=== PATIENT | male | born 1970 | race Two or more races ===

== ENCOUNTER 2024-12-18 17:08 | Inpatient (IN) | payer OTHER ==
[~2024-12-18] VITALS: Ht 172.7 cm; Wt 108.8 kg
--- NOTE | 2024-12-18 19:05 | ED.PDOC ---
History of Present Illness HPI Comments Mr. Lyles is a 54 year old male with PMHX of hypertension and hyperlipidemia, who presents with chief complaint of difficulty urinating. The patient states that for last 3 days he has had decrease in his urinary flow associated with strong smelling urine, dysuria, dribbling, and bloating sensation. Reports that in the last 24 hours developed chills and subjective fevers. He denies hematuria, pyuria, nausea, vomiting, pelvic pain, flank pain, suprapubic pain, palpitations, or previous issues with his prostate. Due to persistence of symptoms he presents today to the emergency department for further evaluation. He states he was able to urinate to give a sample. Chief Complaint: Urinary Time Seen by MD: 18:30 Allergies: Coded Allergies: NO KNOWN ALLERGIES (Unverified , 12/18/24) Information Source: Patient Mode of Arrival: Ambulatory Severity: None Timing: Days Duration: Since onset Past Medical History PAST MEDICAL HISTORY: High Lipids, HTN Surgical History: Cholecystectomy Family History Family History: Family hx of DM, Family hx of heart karley, Family hx of HTN Social History Smoker: Non-Smoker Alcohol: Denies ETOH Use Drugs: Denies Drug Use Lives In: Home Constitutional: reports: chills, diaphoresis, others (Febrile sensation) EENTM: denies: blurred vision, double vision, ear bleeding, ear discharge, ear drainage, ear pain, ear ringing, eye pain, eye redness, hearing loss, mouth pain, mouth swelling, nasal discharge, nose bleeding, nose congestion, nose pain, photophobia, tearing, throat pain, throat swelling, voice changes, others Respiratory: denies: cough, hemoptysis, orthopnea, SOB at rest, shortness of breath, SOB with excertion, stridor, wheezing, others Cardiovascular: denies: chest pain, dizzy spells, diaphoresis, Dyspnea on exertion, edema, irregular heart beat, left arm pain, lightheadedness, palpitations, PND, syncope, others Gastrointestinal: denies: abdomen distended, abdominal pain, blood streaked bowels, constipated, diarrhea, dysphagia, difficulty swallowing, hematemesis, melena, nausea, poor appetite, poor fluid intake, rectal bleeding, rectal pain, vomiting, others Genitourinary: reports: dysuria, urgency, others (urinary retention) Neurological: denies: dizziness, fainting, headache, left sided numbness, left sided weakness, numbness, paresthesia, pre-existing deficit, right sided numbness, right sided weakness, seizure, speech problems, tingling, tremors, weakness, others Musculoskeletal: denies: back pain, gout, joint pain, joint swelling, muscle pain, muscle stiffness, neck pain, others Integumetry: denies: bruises, change in color, change in hair/nails, dryness, laceration, lesions, lumps, rash, wounds, others Hematologic/Lymphatic: denies: anemia, blood clots, easy bleeding, easy bruising, swollen glands, others Physical Exam General Appearance: Normal, Obese HEENT: Normal ENT Inspection, PERRL/EOMI, Pharynx Normal Neck: Full Range of Motion, Non-Tender, Normal Inspection Respiratory: Lungs Clear, No Accessory Muscle Use, No Respiratory Distress, Normal Breath Sounds Cardiovascular: No Edema, No JVD, No Murmur, No Gallop, Normal Peripheral Pulses, Regular Rate/Rhythm Breast Exam: Deferred Gastrointestinal: No Organomegaly, Non Tender (No suprapubic tenderness present, no CVA tenderness), No Pulsatile Mass, Normal Bowel Sounds, Other (No bladder globe present) Genitalia: Deferred Pelvic: Deferred Rectal: Deferred Extremities: No calf tenderness, Normal capillary refill, Normal inspection, Normal range of motion, Non-tender, No pedal edema Neurologic: No Motor Deficits, Normal Affect, Normal Mood, No Sensory Deficits Cerebellar Function: Normal Reflexes: Normal Skin: Normal Color Lymphatic: No Adenopathy Was a procedure done? Was a procedure done?: No Differential Dx Considerations may include: UTI, BPH, prostatitis, acute urinary retention X-Ray, Labs, Meds, VS Vital Signs Date Time Temp Pulse Resp B/P (MAP) Pulse Ox O2 Delivery O2 Flow Rate FiO2 12/18/24 23:02 99.3 80 16 129/91 (104) 95 99.3 12/18/24 20:56 99.7 96 14 141/94 (110) 98 99.7 12/18/24 17:09 99.0 112 18 154/100 97 99.0 Lab Test 12/18/24 20:05 12/18/24 18:58 12/18/24 17:20 Range/Units Lactic Acid Level 1.1 0.4-2.0 mmol/L White Blood Count 16.4 H 4.4-10.8 10^3/uL Red Blood Count 5.57 4.5-5.90 10^6/uL Hemoglobin 17.0 13.5-17.5 g/dL Hematocrit 49.2 41.0-53.0 % Mean Corpuscular Volume 88.4 80.0-100.0 fL Mean Corpuscular Hemoglobin 30.5 28.0-32.0 pg Mean Corpuscular Hemoglobin Concent 34.5 32.0-36.0 g/dL Red Cell Distribution Width 14.0 11.8-14.3 % Platelet Count 275 140-450 10^3/uL Mean Platelet Volume 9.3 6.9-10.8 fL Neutrophils (%) (Auto) 82.0 H 37.0-80.0 % Lymphocytes (%) (Auto) 10.8 10.0-50.0 % Monocytes (%) (Auto) 6.7 0.0-12.0 % Eosinophils (%) (Auto) 0.0 0.0-7.0 % Basophils (%) (Auto) 0.5 0.0-2.0 % Neutrophils # (Auto) 13.5 H 1.6-8.6 10 ^3/uL Lymphocytes # (Auto) 1.8 0.4-5.4 10 ^3/uL Monocytes # (Auto) 1.1 0-1.3 10 ^3/uL Eosinophils # (Auto) 0 0-0.8 10 ^3/uL Basophils # (Auto) 0.1 0-0.2 10 ^3/uL Nucleated Red Blood Cells 0.1 % Sodium Level 138 136-145 mmol/L Potassium Level 4.0 3.5-5.1 mmol/L Chloride Level 99 98-107 mmol/L Carbon Dioxide Level 28 20-31 mmol/L Anion Gap 11 5-15 Blood Urea Nitrogen 7 L 9-23 mg/dL Creatinine 1.07 0.700-1.30 mg/dL Glomerular Filtration Rate Calc 82 >90 mL/min BUN/Creatinine Ratio 6.5 L 10.0-20.0 Serum Glucose 97 74-106 mg/dL Calcium Level 10.3 8.7-10.4 mg/dL Free Prostate Specific Antigen Pending Percent Free Prostate Specific Ag Pending Prostate Specific Antigen Total Pending Urine Color Yellow Yellow Urine Clarity Turbid H Clear Urine pH 5.5 5.0-9.0 Urine Specific [place] 1.022 1.001-1.035 Urine Protein 1+ H Negative Urine Ketones Negative Negative Urine Blood 3+ H Negative /uL Urine Nitrite Negative Negative Urine Bilirubin Negative Negative Urine Urobilinogen Normal Negative mg/dL Urine Leukocyte Esterase 3+ Negative /uL Urine RBC 328 0 - 3 /hpf Urine Microscopic WBC 392 H 0-3 /HPF Urine Squamous Epithelial Cells Few <5 /hpf Urine Bacteria Few H None Seen /hpf Urine Mucus Few None Seen Urine Glucose Normal Normal mg/dL Current Medications Medications (Trade) Dose Ordered Sig/Brennen Route Start Time Stop Time Status Last Admin Sodium Chloride 2,050 ml @ 1,000 mls/hr ONCE ONCE IV 12/18/24 20:15 12/18/24 22:17 DC 12/18/24 20:44 Ceftriaxone Sodium 50 ml @ 100 mls/hr ONCE ONCE IV 12/18/24 20:15 12/18/24 20:44 DC 12/18/24 20:48 Time of 1ST Reevaluation: 20:00 Reevaluation 1ST: Unchanged Patient Education/Counseling: Diagnosis, Treatment Family Education/Counseling: No Family Present SEPSIS Sepsis Screen Date sepsis recognized/suspect: Dec 18, 2024 Time Sepsis recognized/suspect: 1708 Recent Procedure: No On Antibiotic Therapy: No Respiratory Rate >20: No Heart Rate >90: Yes Temp<36 C (96.8 F) or >38.3 C: No SBP <90 or MAP <65 mmHG: No New Acute Mental Status Change: No Is the patient on CPAP, BIPAP,: No Physician Orders Psa Total+% Free (12/18/24 18:50) Blood Culture (12/18/24 19:51) Urine Bacterial Culture (12/18/24 19:55) Vital Signs Date Time Temp Pulse Resp B/P (MAP) Pulse Ox O2 Delivery O2 Flow Rate FiO2 12/18/24 23:02 99.3 80 16 129/91 (104) 95 99.3 12/18/24 20:56 99.7 96 14 141/94 (110) 98 99.7 12/18/24 17:09 99.0 112 18 154/100 97 99.0 Laboratory Tests Test 12/18/24 18:58 12/18/24 20:05 White Blood Count 16.4 10^3/uL (4.4-10.8) H Lactic Acid Level 1.1 mmol/L (0.4-2.0) Medications Medications Dose Ordered Sig/Brennen Route Start Time Stop Time Status Last Admin Dose Admin Ceftriaxone Sodium 50 ml @ 100 mls/hr ONCE ONCE IV 12/18/24 20:15 12/18/24 20:44 DC 12/18/24 20:48 Sodium Chloride 2,050 ml @ 1,000 mls/hr ONCE ONCE IV 12/18/24 20:15 12/18/24 22:17 DC 12/18/24 20:44 Departure 1 Departure Time of Disposition: 20:49 (The patient presents today with urinary retention and dysuria turning for possible UTI, BPH, prostatitis. I ordered and reviewed the results of at least 3 labs including CBC, BMP, and urinalysis. Patient is tachycardic, WBCs of 16.4, and urinalysis significant for UTI. Review of all the data patient is likely to be septic secondary to a UTI. Patient is stable at this time, he will be admitted for further and management.) Impression: Primary Impression: Sepsis Additional Impression: UTI (urinary tract infection) Disposition: ADMITTED INPATIENT Admit to: Med Surg Condition: Stable Additional Instructions: Patient presented today for urinary retention and dysuria. CBC significant for leukocytosis and neutrophilia. Urinalysis significant for UTI. Patient is tachycardic, with leukocytes of 16.4, and with urinalysis significant for UTI. Sepsis protocol initiated, lactic acid was drawn, 30 cc/kilogram IV fluid bolus was given, patient was given IV ceftriaxone for UTI. Patient will be admitted for further workup and management of sepsis in the setting of urinary tract infection. Critical Care Note Critical Care Time?: No Stability Stability form required: LUIS Denton Dec 18, 2024 19:05 ALEX GUSTAFSON MD Dec 19, 2024 01:53
[2024-12-18 19:09] LABS: Hematocrit 49.2 % (41.0-53.0); Hemoglobin 17.0 g/dL (13.5-17.5); Mean Corpuscular Hemoglobin 30.5 pg (28.0-32.0); Mean Corpuscular Volume 88.4 fL (80.0-100.0); Nucleated Red Blood Cells % 0.1 %
[2024-12-18 19:17] LABS: Chloride 99 mmol/L (98-107); Potassium 4.0 mmol/L (3.5-5.1); Sodium 138 mmol/L (136-145)
[2024-12-18 19:18] LABS: Anion Gap 11 (5-15); Carbon Dioxide 28 mmol/L (20-31)
[2024-12-18 19:19] LABS: Calcium 10.3 mg/dL (8.7-10.4)
[2024-12-18 19:23] LABS: BUN/Creatinine Ratio 6.5 (10.0-20.0); Glucose 97 mg/dL (74-106)
[2024-12-18 19:30] LABS: Blood Urea Nitrogen 7 mg/dL (9-23)
[2024-12-18 20:08] LABS: Urine Protein, UAD 1+ (Negative)
[2024-12-18] MEDS: SODIUM CHLORIDE 0.9% 2,050 ML IV ONE (20:44)
[2024-12-19] VITALS (8 sets, daily range): BP systolic 101–150; BP diastolic 62–105; PULSE 65–100; RESP 18–20; TEMP 96.3–98.8; O2SAT 94–98
[2024-12-19] MEDS ORDERED: ONDANSETRON HCL 4 MG/2 ML VIAL IV PRN (01:30)
[2024-12-19] MEDS ORDERED: NITROGLYCERIN 0.4 MG SL TAB SL PRN (01:30)
[2024-12-19] MEDS ORDERED: MORPHINE SULFATE INJ 2 MG/ml SYRG IV PRN ×2 (01:30)
[2024-12-19] MEDS ORDERED: TEMAZEPAM 15 MG CAP PO PRN (01:30)
[2024-12-19] MEDS ORDERED: DOCUSATE SOD 100 MG CAP PO PRN (01:30)
[2024-12-19] MEDS: SODIUM CHLORIDE 0.9% 1,000 ML IV SCH (01:30)
--- NOTE | 2024-12-19 01:36 | DVHHP2 ---
Admitting Diagnosis: difficulty urinating History of Present Illness Mr. Lyles is a 54 year old male with PMHX of hypertension and hyperlipidemia, who presents with chief complaint of difficulty urinating. The patient states that for last 3 days he has had decrease in his urinary flow associated with strong smelling urine, dysuria, dribbling, and bloating sensation. Reports that in the last 24 hours developed chills and subjective fevers. He denies hematuria, pyuria, nausea, vomiting, pelvic pain, flank pain, suprapubic pain, palpitations, or previous issues with his prostate. Due to persistence of symptoms he presents today to the emergency department for further evaluation. He states he was able to urinate to give a sample. While in the emergency department the patient was evaluated by the provider, As per provider: Labs, vital signs, and imagining monitored. Patient will be admitted for further evaluation and treatment. I discussed admission with the patient/family and is in agreement to treatment plan Allergies: Coded Allergies: NO KNOWN ALLERGIES (Unverified , 12/18/24) Current Medications Current Medications Medications (Trade) Dose Ordered Sig/Brennen Route PRN Reason Start Time Stop Time Status Last Admin Sodium Chloride 1,000 ml @ 60 mls/hr [id number] IV 12/19/24 01:30 12/19/24 17:03 Acetaminophen/ Hydrocodone Bitart (Prospect 5/325MG Tab) 1 tab Q4HP PRN PO MODERATE PAIN (4-6 PAIN SCALE) 12/19/24 01:30 12/19/24 16:37 Temazepam (Restoril) 15 mg QHSP PRN PO FOR INSOMNIA 12/19/24 01:30 Ondansetron HCl (Zofran) 4 mg Q4HP PRN IV NAUSEA / VOMITING 12/19/24 01:30 Docusate Sodium (Colace Capsule) 100 mg BIDPRN PRN PO FOR CONSTIPATION 12/19/24 01:30 Acetaminophen (Tylenol Tablet) 650 mg Q6HP PRN PO PAIN SCALE 1-3 OR TEMP>100.4 12/19/24 01:30 Morphine Sulfate 2 mg Q4HPRN PRN IV SEVERE PAIN (7-10 PAIN SCALE) 12/19/24 01:30 Enoxaparin Sodium (Lovenox) 40 mg DAILY SC 12/19/24 10:00 12/19/24 10:00 DC 12/19/24 08:48 Nitroglycerin (Ntrostat Sublingual) 0.4 mg Q5MINP PRN SL FOR CHEST PAIN 12/19/24 01:30 Morphine Sulfate 2 mg Q30M PRN IV FOR CHEST PAIN 12/19/24 01:30 Piperacillin Sod/ Tazobactam Sod 100 ml @ 25 mls/hr Q8HR IV 12/19/24 15:00 12/19/24 15:24 Lisinopril (Zestril Tablet) 20 mg BID PO 12/19/24 22:00 Atorvastatin Calcium (Lipitor) 20 mg HS PO 12/19/24 22:00 Enoxaparin Sodium (Lovenox) 40 mg DAILY SC 12/20/24 10:00 Pantoprazole Sodium (Protonix Tablet) 40 mg DAILY@0600 PO 12/20/24 06:00 Review of Systems Constitutional: denies chills, denies fever, denies malaise Eyes: denies eye pain, denies vision change ENT: denies ear pain, denies headache, denies nasal congestion, denies painful swallowing, denies voice change Cardiovascular: denies chest pain, denies edema, denies orthopnea, denies palpitations, denies paroxysmal nocturnal dyspnea Respiratory: denies cough, denies shortness of breath Gastrointestinal: denies constipation, denies diarrhea, denies nausea, denies vomiting Genitourinary: denies dysuria, denies frequent urination, denies urethral discharge Musculoskeletal: denies back pain, denies joint pain, denies muscle pain Skin: denies bruising, denies itching, denies rash Neurological: denies focal weakness, denies headache, denies sensory changes Psychiatric: denies anxiety, denies depression Endocrine: denies polydipsia, denies polyuria Hematologic/Lymphatic: denies easy bleeding, denies easy bruising, denies enlarged lymph nodes Allergic/Immunologic: denies allergy, denies hives Vital Signs Vital Signs Date Time Temp Pulse Resp B/P (MAP) Pulse Ox O2 Delivery O2 Flow Rate FiO2 12/19/24 16:56 98.8 82 18 137/76 (96) 96 98.8 12/19/24 03:21 Room Air* 0 21 Physical Exam General Appearance: alert, no distress HEENT: EOMI, PERRLA, normal external inspect of ears, no icterus, no nasal drainage Neck: no carotid bruit, no jugular venous distention (JVD), no lymphadenopathy Chest: normal thorax Respiratory: clear to auscultation, normal air movement Cardiovascular: regular rate and rhythm, no diastolic murmur, no jugular venous distention (JVD), no rub, no systolic murmur Abdominal: soft, no hepatomegaly, no mass, no splenomegaly, no tenderness Genitourinary: grossly normal external Musculoskeletal: no joint tenderness, no swelling Extremities: normal pulses, no calf tenderness, no clubbing, no cyanosis, no edema Skin: no bruising, no jaundice, no rash Neurological: alert, No focal deficit SEPSIS Sepsis Screen Date sepsis recognized/suspect: Dec 18, 2024 Time Sepsis recognized/suspect: 1708 Recent Procedure: No On Antibiotic Therapy: No Respiratory Rate >20: No Heart Rate >90: Yes Temp<36 C (96.8 F) or >38.3 C: No SBP <90 or MAP <65 mmHG: No New Acute Mental Status Change: No Is the patient on CPAP, BIPAP,: No Physician Orders Psa Total+% Free (12/18/24 18:50) Blood Culture (12/18/24 19:51) Urine Bacterial Culture (12/18/24 19:55) Admit (12/19/24 01:30) Code Status (12/19/24 01:30) 2 Gm Sodium Diet (12/19/24 Breakfast) Sodium Chloride 0.9% (12/19/24 01:30) Hydrocodone-Acet 5/325mg Tab (Prospect 5/32 (12/19/24 01:30) Temazepam (Restoril) (12/19/24 01:30) Ondansetron Hcl (Zofran) (12/19/24 01:30) Docusate Sodium Capsule (Colace Capsule) (12/19/24 01:30) Condition: Fair (12/19/24 01:30) Acetaminophen Tablet (Tylenol Tablet) (12/19/24 01:30) Morphine Sulfate Injection (12/19/24 01:30) Sequential Compression Device (12/19/24 ) Nitroglycerin Sublingual (Ntrostat Subli (12/19/24 01:30) Morphine Sulfate Injection (12/19/24 01:30) Stat Ekg For Chest Pain (12/19/24 01:30) Notify Of Changes From Base (12/19/24 01:30) Office Support Assistant For 24 Hours (12/19/24 01:30) Emergency Dysrhythmia Protocol (12/19/24 01:30) Rhythm Strips Once Every Shift (12/19/24 01:30) Oxygen By Nasal Cannula (12/19/24 01:30) Hepatitis B Surface Antigen (12/19/24 04:06) Hepatitis C Antibody (12/19/24 04:06) Piperacillin-Tazob 3.375gm (Zosyn 3.375g (12/19/24 15:00) Lisinopril Tablet (Zestril Tablet) (12/19/24 22:00) Atorvastatin (Lipitor) (12/19/24 22:00) Enoxaparin Sodium (Lovenox) (12/20/24 10:00) Pantoprazole Tablet (Protonix Tablet) (12/20/24 06:00) Vital Signs Date Time Temp Pulse Resp B/P (MAP) Pulse Ox O2 Delivery O2 Flow Rate FiO2 12/19/24 16:56 98.8 82 18 137/76 (96) 96 98.8 12/19/24 12:26 98.3 66 18 123/75 (91) 97 98.3 12/19/24 08:05 98.3 100 18 150/105 (120) 97 98.3 12/19/24 04:00 97.7 65 18 116/71 (86) 98 97.7 12/19/24 03:21 98.8 86 18 136/82 (100) 96 98.8 12/19/24 03:21 86 18 96 Room Air* 0 21 12/19/24 03:19 Room Air* 0 21 12/19/24 01:57 83 14 96 Room Air 12/19/24 01:57 98.8 83 14 134/81 (98) 93 98.8 12/18/24 23:02 99.3 80 16 129/91 (104) 95 99.3 12/18/24 20:56 99.7 96 14 141/94 (110) 98 99.7 12/18/24 17:09 99.0 112 18 154/100 97 99.0 Laboratory Tests Test 12/18/24 18:58 12/18/24 20:05 White Blood Count 16.4 10^3/uL (4.4-10.8) H Lactic Acid Level 1.1 mmol/L (0.4-2.0) Medications Medications Dose Ordered Sig/Brennen Route Start Time Stop Time Status Last Admin Dose Admin Enoxaparin Sodium 40 mg DAILY SC 12/19/24 10:00 12/19/24 10:00 DC 12/19/24 08:48 Piperacillin Sod/ Tazobactam Sod 100 ml @ 25 mls/hr Q8HR IV 12/19/24 15:00 12/19/24 15:24 Results Labs Test 12/19/24 06:26 12/18/24 20:05 12/18/24 18:58 12/18/24 17:20 Range/Units Lactic Acid Level 1.1 0.4-2.0 mmol/L White Blood Count 16.4 H 4.4-10.8 10^3/uL Red Blood Count 5.57 4.5-5.90 10^6/uL Hemoglobin 17.0 13.5-17.5 g/dL Hematocrit 49.2 41.0-53.0 % Mean Corpuscular Volume 88.4 80.0-100.0 fL Mean Corpuscular Hemoglobin 30.5 28.0-32.0 pg Mean Corpuscular Hemoglobin Concent 34.5 32.0-36.0 g/dL Red Cell Distribution Width 14.0 11.8-14.3 % Platelet Count 275 140-450 10^3/uL Mean Platelet Volume 9.3 6.9-10.8 fL Neutrophils (%) (Auto) 82.0 H 37.0-80.0 % Lymphocytes (%) (Auto) 10.8 10.0-50.0 % Monocytes (%) (Auto) 6.7 0.0-12.0 % Eosinophils (%) (Auto) 0.0 0.0-7.0 % Basophils (%) (Auto) 0.5 0.0-2.0 % Neutrophils # (Auto) 13.5 H 1.6-8.6 10 ^3/uL Lymphocytes # (Auto) 1.8 0.4-5.4 10 ^3/uL Monocytes # (Auto) 1.1 0-1.3 10 ^3/uL Eosinophils # (Auto) 0 0-0.8 10 ^3/uL Basophils # (Auto) 0.1 0-0.2 10 ^3/uL Nucleated Red Blood Cells 0.1 % Sodium Level 138 136-145 mmol/L Potassium Level 4.0 3.5-5.1 mmol/L Chloride Level 99 98-107 mmol/L Carbon Dioxide Level 28 20-31 mmol/L Anion Gap 11 5-15 Blood Urea Nitrogen 7 L 9-23 mg/dL Creatinine 1.07 0.700-1.30 mg/dL Glomerular Filtration Rate Calc 82 >90 mL/min BUN/Creatinine Ratio 6.5 L 10.0-20.0 Serum Glucose 97 74-106 mg/dL Calcium Level 10.3 8.7-10.4 mg/dL Urine Color Yellow Yellow Urine Clarity Turbid H Clear Urine pH 5.5 5.0-9.0 Urine Specific [place] 1.022 1.001-1.035 Urine Protein 1+ H Negative Urine Ketones Negative Negative Urine Blood 3+ H Negative /uL Urine Nitrite Negative Negative Urine Bilirubin Negative Negative Urine Urobilinogen Normal Negative mg/dL Urine Leukocyte Esterase 3+ Negative /uL Urine RBC 328 0 - 3 /hpf Urine Microscopic WBC 392 H 0-3 /HPF Urine Squamous Epithelial Cells Few <5 /hpf Urine Bacteria Few H None Seen /hpf Urine Mucus Few None Seen Urine Glucose Normal Normal mg/dL Microbiology Date/Time Source Procedure Growth Status 12/18/24 17:20 Voided Urine Urine Culture - Preliminary Resulted Plan 1. Complicated cystitis IV antibiotics, monitor 2. HLD Monitor 3. Benign essential hypertension Monitor, restart home meds, antihypertensives, cardiac diet, PPI, DVT prophylaxis 4. Morbid obesity Monitor, cardiac diet Plan discussed with: Patient, Other RUTH CHEATHAM NP Dec 19, 2024 01:36
[2024-12-19] MEDS: HYDROcodone-ACET 5/325MG TAB PO PRN (02:03)
[2024-12-19] MEDS: ENOXAPARIN SOD 40 MG/0.4 ML SYRINGE SC SCH (08:48)
[2024-12-19] MEDS: PIPERACILLIN-TAZOB 3.375GM 100 ML IV SCH (15:24)
[2024-12-19] MEDS: LISINOPRIL 20 MG TAB PO SCH (21:11)
[2024-12-19] MEDS: ATORVASTATIN 20 MG TAB PO SCH (21:15)
[2024-12-19] MEDS: ACETAMINOPHEN 325 MG TAB PO PRN (21:18)
[2024-12-20] VITALS (8 sets, daily range): BP systolic 111–140; BP diastolic 68–98; PULSE 67–84; RESP 18; TEMP 77–99; O2SAT 94–98
[2024-12-20] MEDS: PANTOPRAZOLE 40 MG TAB PO SCH (05:52)
[2024-12-20 09:07] LABS: Prostate Specific Antigen 4.1 ng/mL (0.0-4.0)
[2024-12-20] MEDS: ENOXAPARIN SOD 40 MG/0.4 ML SYRINGE SC SCH (10:02)
[2024-12-20 12:34] LABS: Hepatitis B Surface Antigen Negative (Negative); Hepatitis C Antibody Negative (Negative)
--- NOTE | 2024-12-20 16:36 | DVHPN2 ---
Progress Note - Dictate Date Seen: Dec 20, 2024 Medical Necessity Reason Pt with a Central, PICC or Fol: No vital signs Vital Sign Date Time Temp Pulse Resp B/P (MAP) Pulse Ox O2 Delivery O2 Flow Rate FiO2 12/20/24 13:00 98.8 76 18 138/85 (102) 94 98.8 12/20/24 08:00 Room Air* 0 21 Total Intake and Output 12/19/24 12/19/24 12/20/24 15:00 23:00 07:00 Intake Total 0 ml Balance 0 ml medications Current Medications Medications Dose Ordered Sig/Brennen Route Start Time Stop Time Status Last Admin Dose Admin Sodium Chloride 1,000 ml @ 60 mls/hr [id number] IV 12/19/24 01:30 12/19/24 17:03 60 MLS/HR Acetaminophen/ Hydrocodone Bitart 1 tab Q4HP PRN PO 12/19/24 01:30 12/20/24 15:16 1 TAB Temazepam 15 mg QHSP PRN PO 12/19/24 01:30 Ondansetron HCl 4 mg Q4HP PRN IV 12/19/24 01:30 Docusate Sodium 100 mg BIDPRN PRN PO 12/19/24 01:30 Acetaminophen 650 mg Q6HP PRN PO 12/19/24 01:30 12/19/24 21:18 650 MG Morphine Sulfate 2 mg Q4HPRN PRN IV 12/19/24 01:30 Nitroglycerin 0.4 mg Q5MINP PRN SL 12/19/24 01:30 Morphine Sulfate 2 mg Q30M PRN IV 12/19/24 01:30 Piperacillin Sod/ Tazobactam Sod 100 ml @ 25 mls/hr Q8HR IV 12/19/24 15:00 12/20/24 14:00 25 MLS/HR Lisinopril 20 mg BID PO 12/19/24 22:00 12/20/24 10:03 20 MG Atorvastatin Calcium 20 mg HS PO 12/19/24 22:00 12/19/24 21:15 20 MG Enoxaparin Sodium 40 mg DAILY SC 12/20/24 10:00 12/20/24 10:02 40 MG Pantoprazole Sodium 40 mg DAILY@0600 PO 12/20/24 06:00 12/20/24 05:52 40 MG objective General Appearance: alert, no distress HEENT: EOMI, PERRLA, normal external inspect of ears, no icterus, no nasal drainage Neck: no carotid bruit, no jugular venous distention (JVD), no lymphadenopathy Chest: normal thorax Respiratory: clear to auscultation, normal air movement Cardiovascular: regular rate and rhythm, no diastolic murmur, no jugular venous distention (JVD), no rub, no systolic murmur Abdominal: soft, no hepatomegaly, no mass, no splenomegaly, no tenderness Genitourinary: grossly normal external Musculoskeletal: no joint tenderness, no swelling Extremities: normal pulses, no calf tenderness, no clubbing, no cyanosis, no edema Skin: no bruising, no jaundice, no rash Neurological: alert, No focal deficit laboratory and microbiology Laboratory Tests 12/18/24 18:58 Test 12/18/24 18:58 Range/Units Serum Glucose 97 74-106 mg/dL Problem List 1. Complicated cystitis IV antibiotics, monitor 2. HLD Monitor 3. Benign essential hypertension Monitor, restart home meds, antihypertensives, cardiac diet, PPI, DVT prophylaxis 4. Morbid obesity Monitor, cardiac diet Assessment/Plan Subjective: Patient is awake and alert. Objective: Patient was admitted for abdominal and flank pain related to complicated UTI. Patient has a history of hyperlipidemia and hypertension. Patient is currently on lisinopril. Blood pressure is in the 130s. Patient was started on Zosyn. He states he mainly has pain. Plan: Encourage fluids. Continue antihypertensives. Monitor overnight. Possible discharge plan for tomorrow. Plan discussed with: Patient, Other RUTH CHEATHAM NP Dec 20, 2024 16:36
[2024-12-21 01:00] VITALS: BP 117/77; PULSE 69; RESP 18; TEMP 98; O2SAT 96
[2024-12-21 05:00] VITALS: BP 127/86; PULSE 67; RESP 18; TEMP 97.4; O2SAT 99
[2024-12-21 08:00] VITALS: PULSE 83; PULSE 98; RESP 18; O2SAT 95
[2024-12-21 09:00] VITALS: BP 125/84; PULSE 83; RESP 18; TEMP 98.9; O2SAT 95
[2024-12-21 12:48] VITALS: BP 112/79; PULSE 60; RESP 16; TEMP 98.7; O2SAT 97
[2024-12-21] MEDS ORDERED: AMOX500T86 PO (16:15)
--- NOTE | 2024-12-21 16:16 | DVHDS2 ---
Discharge Summary Date of Admission Dec 19, 2024 at 01:30 Date of Discharge: Dec 21, 2024 Labs/Diagnostic Data: Laboratory Results Test 12/19/24 06:26 12/18/24 20:05 12/18/24 18:58 12/18/24 17:20 Hepatitis B Surface Antigen Negative (Negative) Hepatitis C Antibody Negative (Negative) Lactic Acid Level 1.1 mmol/L (0.4-2.0) White Blood Count 16.4 10^3/uL (4.4-10.8) Red Blood Count 5.57 10^6/uL (4.5-5.90) Hemoglobin 17.0 g/dL (13.5-17.5) Hematocrit 49.2 % (41.0-53.0) Mean Corpuscular Volume 88.4 fL (80.0-100.0) Mean Corpuscular Hemoglobin 30.5 pg (28.0-32.0) Mean Corpuscular Hemoglobin Concent 34.5 g/dL (32.0-36.0) Red Cell Distribution Width 14.0 % (11.8-14.3) Platelet Count 275 10^3/uL (140-450) Mean Platelet Volume 9.3 fL (6.9-10.8) Neutrophils (%) (Auto) 82.0 % (37.0-80.0) Lymphocytes (%) (Auto) 10.8 % (10.0-50.0) Monocytes (%) (Auto) 6.7 % (0.0-12.0) Eosinophils (%) (Auto) 0.0 % (0.0-7.0) Basophils (%) (Auto) 0.5 % (0.0-2.0) Neutrophils # (Auto) 13.5 10 ^3/uL (1.6-8.6) Lymphocytes # (Auto) 1.8 10 ^3/uL (0.4-5.4) Monocytes # (Auto) 1.1 10 ^3/uL (0-1.3) Eosinophils # (Auto) 0 10 ^3/uL (0-0.8) Basophils # (Auto) 0.1 10 ^3/uL (0-0.2) Nucleated Red Blood Cells 0.1 % Sodium Level 138 mmol/L (136-145) Potassium Level 4.0 mmol/L (3.5-5.1) Chloride Level 99 mmol/L (98-107) Carbon Dioxide Level 28 mmol/L (20-31) Anion Gap 11 (5-15) Blood Urea Nitrogen 7 mg/dL (9-23) Creatinine 1.07 mg/dL (0.700-1.30) Glomerular Filtration Rate Calc 82 mL/min (>90) BUN/Creatinine Ratio 6.5 (10.0-20.0) Serum Glucose 97 mg/dL (74-106) Calcium Level 10.3 mg/dL (8.7-10.4) Free Prostate Specific Antigen 1.14 ng/mL (N/A) Percent Free Prostate Specific Ag 27.8 % (.) Prostate Specific Antigen Total 4.1 ng/mL (0.0-4.0) Urine Color Yellow (Yellow) Urine Clarity Turbid (Clear) Urine pH 5.5 (5.0-9.0) Urine Specific [place] 1.022 (1.001-1.035) Urine Protein 1+ (Negative) Urine Ketones Negative (Negative) Urine Blood 3+ /uL (Negative) Urine Nitrite Negative (Negative) Urine Bilirubin Negative (Negative) Urine Urobilinogen Normal mg/dL (Negative) Urine Leukocyte Esterase 3+ /uL (Negative) Urine RBC 328 /hpf (0 - 3) Urine Microscopic WBC 392 /HPF (0-3) Urine Squamous Epithelial Cells Few /hpf (<5) Urine Bacteria Few /hpf (None Seen) Urine Mucus Few (None Seen) Urine Glucose Normal mg/dL (Normal) Other Laboratory Tests 12/18/24 18:58 Brief Hx & Hospital Course: Mr. Lyles is a 54 year old male with PMHX of hypertension and hyperlipidemia, who presents with chief complaint of difficulty urinating. The patient states that for last 3 days he has had decrease in his urinary flow associated with strong smelling urine, dysuria, dribbling, and bloating sensation. Reports that in the last 24 hours developed chills and subjective fevers. He denies hematuria, pyuria, nausea, vomiting, pelvic pain, flank pain, suprapubic pain, palpitations, or previous issues with his prostate. Due to persistence of symptoms he presents today to the emergency department for further evaluation. He states he was able to urinate to give a sample. While in the emergency department the patient was evaluated by the provider, As per provider: Labs, vital signs, and imagining monitored. Patient was admitted December 19 for flank and abdominal pain. Related to complicated UTI. Patient was given antibiotics with Zosyn. Patient stated he felt much better and had no nausea or vomiting. No complaints of flank pain. Augmentin was sent for 7 days. He has a follow-up with PCP in 1 week. The patient received proper medical treatment and medications. Vital signs, Imaging and Laboratory Work was monitored daily. All consults recommendations were followed as provided. There were no complaints or new complaints upon discharge, all questions and concerns were answered. Patient was advised to return to the ER or call 911 if any headaches, dizziness, shortness of breath, chest pain, bleeding, fevers, or worsening of medical condition. Patient/Family was counseled about treatment plan, medications, possible side effects, patient verbalized understanding. All questions were answered to the best of my ability. The patient symptoms improved and they are okay to be DC. Condition at Discharge: Good Final Diagnosis/Problems List UTI Secondary Diagnosis: Complicated cystitis HLD Benign essential hypertension Morbid obesity Discharge Disposition: Home Discharge Instruct/Medications Diet: Cardiac 2g Na,low cholest Activity: No Restrictions, As Tolerated Follow Up/Referral: PCP 1 WEEK Scheduled Amoxicillin & Pot Clavulanate (Augmentin), 1 TAB PO BID Discharge Statement: "Patient was advised to return to the ER or call 911 if any headaches, dizziness, shortness of breath, chest pain, abdominal pain, bleeding, fevers, or worsening of medical condition. Patient was counseled about treatment plan, medications, possible side effects, patientverbalized understanding. All questions were answered to the best of my ability. This discharge took greater then 30 minutes in planning, reviewing documentation, counseling the patient, and discussing with other team members." ASSESSMENT ASSESSMENT Assessment UTI RUTH CHEATHAM NP Dec 21, 2024 16:16
[2024-12-21 17:00] VITALS: BP 131/84; PULSE 59; RESP 16; TEMP 98.3; O2SAT 97
== END 2024-12-21 19:12 | disposition home or self-care (01) | DRG 720 ==
LOC: ER 17:08 → OVERFLOW 12-19 01:30 → TELE-WESTW 12-19 21:44
PROVIDERS: ADMIT Nurse Practitioner; ATTEND Nurse Practitioner
DX: A41.9 Sepsis, unspecified organism (principal); E66.01 Morbid (severe) obesity due to excess calories; N30.90 Cystitis, unspecified without hematuria; E78.5 Hyperlipidemia, unspecified; I10 Essential (primary) hypertension; Z90.49 Acquired absence of other specified parts of digestive tract; Z83.3 Family history of diabetes mellitus; Z82.49 Family history of ischemic heart disease and other diseases of the circulatory system; Z68.36 Body mass index [BMI] 36.0-36.9, adult
CPT/HCPCS: 36415; 80048; 81001; 83605; 84154; 85025; 86803; 87040; 87076; 87086; 87340; 96374; 96375; G0378; J2543